=== PATIENT | female | born 1980 | race Caucasian/White ===

== ENCOUNTER 2017-04-06 08:34 | Emergency (ER) | payer OTHER ==
[2017-04-06 08:39] VITALS: BP 113/55; BMI 34.7
--- NOTE | 2017-04-06 09:12 | DR.CP ---
HPI - Time Seen Time seen: 09:10 - PCP Primary Care Physician: SARAH SOLANO - HPI Comment HPI Comment: PATIENT HAVE SIRENESS IN LEFT CHEST RADIATING TI LEFT SHOULDER AND ARM TIMES ONE DAY. WORSE TODAY. MOTRIN HELP PAIN YESTERDAY WHEN PATIENT TOOK ADVIL. DENIES FEVER. HAVE PRODUCTIVE COUGH, YELLOW SPUTUM. - Complaint Chief Complaint Doctor Comments: CHEST PAIN TIMES ONE DAY. Chief Complaint:: PT. C/O MID STERNAL AND LEFT SIDED CHEST PAIN THAT IS SHARP AND SORE IN NATURE. PT. C/O LEFT ARM TINGLING. PT. SAYS THE PAIN BEGAN YESTERDAY AT WORK AND SHE TOOK MOTRIN AND SYMPTOMS GOT BETTER BUT THEN BEGAN AGAIN THIS MORNING. - Reviewed Nurses Notes Review: Yes - Source History Provided: Patient - Mode of Arrival Mode of Arrival: Ambulatory - Timing Onset of Chief Complaint: 04/05/17 Came on: Suddenly Pain: Present Now - Duration Duration: Constant Duration: Days - Location Location of Chest Pain: Left Chest Pain Radiation Location: Left Arm, Left Shoulder - Context Onset: At rest PE Risk Factors: None History of: None Prehospital Care: None - Quality Quality: Sharp - Modifying Factors Worsens: Movement Impoves: Nothing - Associated Signs and Symptoms Associated Signs and Symptoms: Shortness of Breath PMH - PMH Past Medical History: Yes Past Medical History: Arthritis, COPD Past Surgical History: Yes Surgical History: , Cholecystectomy, Tonsillectomy - Family History History of Family Medical Conditions: Yes Family Medical History: Diabetes Mellitus, Cancer, [place], Coronary Artery Disease, Hypertension - Social History Does patient currently use any type of tobacco product: Yes Have you used tobacco products in the last 12 months: Yes Type of Tobacco Use: Cigarettes Does any household member use tobacco: No Alcohol Use: None Do you use any recreational Drugs:: No Lives With: Family Lives Where: Home - infectious screening In the last 2 months have you had wt loss of >10#?: NO Have you had fever, night sweats or hemotysis?: No Have you traveled outside the country in the last 6 months?: No Isolation: Standard ROS - Review of Systems Constitutional: Weakness, Fatigue. negative: Chills, Fever Eyes: No Symptoms Reported. negative: Eye Pain, Discharge ENTM: No Symptoms Reported. negative: Ear Pain, Nose Discharge, Nose Congestion Respiratoy: Productive Cough, Short of Breath. negative: Wheezing, Hemoptysis Cardiovascular: Chest Pain Gastrointestinal/Abdominal: No Symptoms Reported. negative: Abdominal Pain, Diarrhea, Nausea, Vomiting Genitourinary: No Symptoms Reported. negative: Dysuria, Frequency, Hematuria Neurological: Weakness, Dizziness. negative: Headache Musculoskeletal: Muscle Pain Integumentary: No Symptoms Reported Hematologic/Lymphatic: No Symptoms Reported Endocrine: No Symptoms Reported All Other Systems: Reviewed and Negative PE - Vitals Vitals: Temperature 97.7 F Pulse Rate 78 Respiratory Rate 17 Blood Pressure 113/55 O2 Sat by Pulse Oximetry 100 - General Limitations: No Limitations General Appearance: Alert - Head Head Exam: Normal Inspection - Eyes Eye exam: Normal Appearance - ENT ENT Exam: Normal External Ear Exam - Chest Chest Inspection: Symmetric Chest Wall Rise - Respiratory Respiratory Exam: Normal Lung Sounds Bilat Respiratory Exam: Bilateral Clear to Auscultation - Cardiovascular Cardiovascular Exam: Regular Rate, Normal Rhythm, Normal Heart Sounds Pulse: Normal, Radial, Femoral Edema: Normal - Abdominal Exam Abdominal Exam: Normal Bowel Sounds, Soft. negative: Distention - Extremities Extremities Exam: Normal Inspection - Back Back Exam: Normal Inspection - Neurologic Neurological Exam: Alert, Oriented X3 - Skin Skin Exam: Normal Color MDM - Additional Information Additional Information Obtained From: Family - Differential Diagnosis Differential Diagnosis: Angina, Chest Wall Pain, Cholelithasis, CHF, Costochondritis, Esophageal Reflux/Spasm, Gastritis, Myocardial Infarction, Pericarditis, Pleuritis, Pancreatitis, Pneumonia, Pneumothorax, Pulmonary Embolus Course - Treatment Treatment: SEE ORDERS - Education/Counseling Education/Counseling: Patient, Family, Education Educated On: Diagnosis, Needs for Follow Up ROR - Labs Reviewed Laboratory Results Reviewed?: Yes Result Diagrams: 04/06/17 09:27 04/06/17 09:27 Laboratory: WBC 6.0 X10^3/uL (3.6-10.0) 04/06/17 09: RBC 4.27 X10^6/uL (3.5-5.4) 04/06/17 09:27 Hgb 13.4 g/dL (12.0-16.0) 04/06/17 09:27 Hct 39.5 % (36.0-47.0) 04/06/17 09: MCV 92.4 fL (80.0-100.0) 04/06/17 09: MCH 31.4 pg (27.0-34.0) 04/06/17 09: MCHC 34.0 g/dL (33.0-35.0) 04/06/17 09: RDW 14.0 % (11.6-16.5) 04/06/17 09: Plt Count 249 X10^3/uL (150.0-450.0) 04/06/17: MPV 8.4 fL (7.4-11.0) 04/06/17: Neut % 60.5 % (42.0-75.0) 04/06/17: Lymph % 32.2 % (21.0-51.0) 04/06/17: [place] % 5.3 % (0.0-13.0) 04/06/17: Eos % 1.5 % (0.9-2.9) 04/06/17: Baso % 0.5 % (0.2-1.0) 04/06/17: Neut # 3.6 x10^3/uL (2.2-4.8) 04/06/17 09: Lymph # 1.9 X10^3/uL (1.3-2.9) 04/06/17 09: [place] # 0.3 x10^3/uL (0.3-0.8) 04/06/17 09: Eos # 0.1 x10^3/uL (0.0-0.2) 04/06/17: Baso # 0.0 X10^3/uL (0.0-0.1) 04/06/17 09: Absolute Nucleated RBC 0.0 /100WBC 04/06/17: D-Dimer < 100 ng/mL (0-400) 04/06/17 09: Sodium 140 mmol/L (136-145) 04/06/17: Corrected Sodium TNP 04/06/17: Potassium 4.6 mmol/L (3.5-5.1) 04/06/17 09: Chloride 105 mmol/L (98-107) 04/06/17: Carbon Dioxide 28.3 mmol/L (21-32) 04/06/17 09:27 BUN 3 mg/dL (7-18) L 04/06/17 09:27 Creatinine 0.80 mg/dL (0.55-1.02) 04/06/17 09:27 Est GFR (MDRD) Af Amer > 60 (>60) 04/06/17 09:27 Est GFR (MDRD) Non-Af > 60 (>60) 04/06/17 09:27 Glucose 83 mg/dL (65-99) 04/06/17 09:27 Calcium 8.7 mg/dL (8.5-10.1) 04/06/17 09:27 Corrected Calcium 9.3 mg/dL (8.5-10.1) 04/06/17 09:27 Total Bilirubin 0.40 mg/dL (0.2-1.0) 04/06/17 09:27 AST 12 Units/L (15-37) L 04/06/17 09:27 ALT 17 Units/L (12-78) 04/06/17 09:27 Alkaline Phosphatase 44 Units/L (46-116) L 04/06/17 09:27 Creatine Kinase 68 Units/L (26-192) 04/06/17 09:27 CK-MB (CK-2) 1.1 ng/mL (0-4.0) 04/06/17 09:27 CK/CKMB % Calc 1.6 % (<4) 04/06/17 09:27 Troponin I < 0.02 ng/mL (0-1.5) 04/06/17 09:27 Total Protein 6.5 g/dL (6.4-8.2) 04/06/17 09:27 Albumin 3.3 g/dL (3.4-5.0) L 04/06/17 09:27 Globulin 3.2 g/dL (2.5-4.5) 04/06/17 09:27 Albumin/Globulin Ratio 1.0 Ratio (1.1-2.1) L 04/06/17 09:27 Amylase 28 Units/L (25-115) 04/06/17 09:27 Lipase 55 Units/L (73-393) L 04/06/17 09:27 Specimen Type Clean catch urine 04/06/17 09:40 Urine Color Yellow (YELLOW) 04/06/17 09:40 Urine Appearance Clear (CLEAR) 04/06/17 09:40 Urine pH 6.0 (5.0 - 8.0) 04/06/17 09:40 Ur Specific Leopold 1.020 (1.000-1.030) 04/06/17 09:40 Urine Protein Negative (NEGATIVE) 04/06/17 09:40 Urine Glucose (UA) Negative (NEGATIVE) 04/06/17 09:40 Urine Ketones Negative (NEGATIVE) 04/06/17 09:40 Urine Occult Blood 1+ (NEGATIVE) 04/06/17 09:40 Urine Nitrite Negative (NEGATIVE) 04/06/17 09:40 Urine Bilirubin Negative (NEGATIVE) 04/06/17 09:40 Urine Urobilinogen Normal (NORMAL) 04/06/17 09:40 Ur Leukocyte Esterase Negative (NEGATIVE) 04/06/17 09:40 Urine RBC Rare /HPF (NEGATIVE) 04/06/17 09:40 Urine WBC None seen /HPF (NEGATIVE) 04/06/17 09:40 Ur Squamous Epith Cells Moderate /HPF (NEGATIVE) 04/06/17 09:40 Urine Bacteria Trace /HPF (NEGATIVE) 04/06/17 09:40 Ur Culture Indicated? No/not indicated 04/06/17 09:40 - XRAY XRAY Interpreted by: Radiologist XRAY Findings: REPORT DICUSS WITH PATIENT. - EKG Rhythm: SB (EKG NOTED) - Diagnosis Discharge Problem: Costochondritis Chest pain Qualifiers: Chest pain type: unspecified Qualified Code(s): R07.9 - Chest pain, unspecified - Discharge Plan Condition: Stable Prescriptions: Ibuprofen [MOTRIN TAB 600 MG *] 600 mg PO TID PRN #20 tab PRN Reason: Pain/Inflammation Ranitidine HCl [ZANTAC TAB 150 MG *] 150 mg PO BID #60 tab - Follow ups/Referrals Follow ups/Referrals: ASHOK ZHANG [Primary Care Provider] - 2 days - Instructions Instructions: Chest Pain Observation, Costochondritis, [id number] Additional Instructions: RETURN TO ED IF WORSE.
[2017-04-06 09:46] LABS: BASOPHILS % (AUTO) 0.5 % (0.2-1.0); EOSINOPHILS # (AUTO) 0.1 x10^3/uL (0.0-0.2); EOSINOPHILS % (AUTO) 1.5 % (0.9-2.9); HEMATOCRIT 39.5 % (36.0-47.0); HEMOGLOBIN 13.4 g/dL (12.0-16.0); LYMPHOCYTES # (AUTO) 1.9 X10^3/uL (1.3-2.9); LYMPHOCYTES % (AUTO) 32.2 % (21.0-51.0); MEAN CORPUSCULAR HEMOGLOBIN 31.4 pg (27.0-34.0); MEAN CORPUSCULAR VOLUME 92.4 fL (80.0-100.0); MEAN PLATELET VOLUME 8.4 fL (7.4-11.0); MONOCYTES # (AUTO) 0.3 x10^3/uL (0.3-0.8); MONOCYTES % (AUTO) 5.3 % (0.0-13.0); NEUTROPHILS # (AUTO) 3.6 x10^3/uL (2.2-4.8); NEUTROPHILS % (AUTO) 60.5 % (42.0-75.0); PLATELET COUNT 249 X10^3/uL (150.0-450.0); RED BLOOD COUNT 4.27 X10^6/uL (3.5-5.4)
[2017-04-06] MEDS ORDERED: TORADOL 60 MG VIAL IM ONE (09:51)
[2017-04-06] MEDS ORDERED: ASPIRIN PO ONE (09:52)
[2017-04-06] MEDS ORDERED: PEPCID TAB 20 MG PO ONE (09:53)
[2017-04-06 09:58] LABS: BILIRUBIN,URINE NEGATIVE (NEGATIVE); BLOOD/HEMOGLOBIN,URINE 1+ (NEGATIVE); GLUCOSE, URINE NEGATIVE (NEGATIVE); KETONES,URINE NEGATIVE (NEGATIVE); LEUKOCYTE ESTERASE ,URINE NEGATIVE (NEGATIVE); NITRITES,URINE NEGATIVE (NEGATIVE); PROTEIN,URINE NEGATIVE (NEGATIVE); UROBILINOGEN,URINE NORMAL (NORMAL)
[2017-04-06 10:03] LABS: BLOOD UREA NITROGEN 3 mg/dL (7-18); CALCIUM 8.7 mg/dL (8.5-10.1); CARBON DIOXIDE 28.3 mmol/L (21-32); CHLORIDE 105 mmol/L (98-107); GLUCOSE 83 mg/dL (65-99); SODIUM 140 mmol/L (136-145); TROPONIN I < 0.02 ng/mL (0-1.5); eGFR BLACK RACES > 60 (>60); eGFR NON BLACK RACES > 60 (>60)
[2017-04-06 10:05] LABS: ALANINE AMINOTRANSFERASE 17 Units/L (12-78); ALBUMIN 3.3 g/dL (3.4-5.0); ALKALINE PHOSPHATASE 44 Units/L (46-116); ASPARTATE AMINO TRANSFERASE 12 Units/L (15-37); CKMB % 1.6 % (<4); COR CA(FOR HYPOALB) 9.3 mg/dL (8.5-10.1); CREATINE KINASE 68 Units/L (26-192); CREATINE KINASE MB 1.1 ng/mL (0-4.0); TOTAL PROTEIN 6.5 g/dL (6.4-8.2)
[2017-04-06 10:14] LABS: AMYLASE 28 Units/L (25-115); LIPASE 55 Units/L (73-393)
[2017-04-06] MEDS ORDERED: ASPIRIN ONE (10:14)
[2017-04-06] MEDS ORDERED: PEPCID TAB 20 MG ONE (10:14)
[2017-04-06] MEDS ORDERED: TORADOL 60 MG VIAL ONE (10:14)
[2017-04-06 10:16] LABS: APPEARANCE,URINE CLEAR (CLEAR); BACTERIA,URINE TRACE /HPF (NEGATIVE); COLOR,URINE YELLOW (YELLOW); RBC,URINE RARE /HPF (NEGATIVE); SQUAMOUS EPITHELIAL CELL,UR MODERATE /HPF (NEGATIVE)
[2017-04-06 10:33] LABS: D DIMER < 100 ng/mL (0-400)
--- NOTE | 2017-04-06 10:33 | RAD ---
HISTORY: Chest pain. Study: Portable chest. Comparison: Findings: The trachea is midline. The cardiac silhouette is unremarkable. Bibasilar atelectasis versus scarri ng. No obvious focal consolidation, pleural effusion, or pneumothorax. The bony thorax is unremarka ble. IMPRESSION: 1. No acute cardiopulmonary disease. Reported By:
== END 2017-04-06 10:58 | disposition home or self-care (01) ==
LOC: ER 08:42
DX: M94.0 Chondrocostal junction syndrome [Tietze] (principal); R07.89 Other chest pain
CPT/HCPCS: 36415; 71010; 80053; 81001; 82150; 82550; 82553; 83690; 84484; 85025; 85378; 93005; 93010; 96372; 99283; J1885

== ENCOUNTER → 2017-06-29 | Outpatient (CLI) | payer OTHER ==
[~2017-06-29] MED LIST: NS 100 ML IV 100 ML IV ONE
--- NOTE | 2017-06-29 10:07 | CT ---
CT OF THE ABDOMEN AND PELVIS WITH CONTRAST HISTORY: Unspecified abdominal pain Comparison: None Technique: Multiple axial images of the abdomen and pelvis were obtained from the lung bases to the pubic symphy sis follow the administration of IV contrast. Dose reduction techniques including Automated Exposure Control (AEC) and adjustment of mA and kV were utlized. Findings: The heart is normal in size. There is no pericardial effusion. Lung bases are clear without focal con solidation, pleural effusion or pneumothorax. Liver and spleen are normal in size, enhancement characteristics and contour. No focal lesions. The p ortal vein is patent. No ductal dilitation. Gallbladder absent. The pancreas is unremarkable. Adrenal glands are normal. Kidneys enhance symmetrically without hydronephrosis or nephrolithiasis. No bowel obstruction or inflammation. Normal appendix. Fat containing umbilical hernia. No abnormal a ppearing mesenteric or retroperitoneal lymph nodes. No free fluid or fluid collections. The bladder is normal in appearance. Uterus and ovaries present. No free fluid or abnormal pelvic lym ph nodes. No aggressive osseous lesions. IMPRESSION: 1. No source of patient's unspecified abdominal pain is identified. Reported By:
== END ==
LOC: RAD 07:58
PROVIDERS: ATTEND Nurse Practitioner Family
DX: R10.84 Generalized abdominal pain (principal); R94.7 Abnormal results of other endocrine function studies; R53.83 Other fatigue
CPT/HCPCS: 74177; A4222

== ENCOUNTER 2017-09-27 20:20 | Emergency (ER) | payer OTHER ==
[2017-09-27 20:26] VITALS: BP 117/64; BMI 34.7
--- NOTE | 2017-09-27 20:48 | DR.GENAD ---
HPI - PCP Primary Care Physician: echo - Complaint/Symptoms Chief Complaint Doctors Comments: A 37 y/o female presenting with 2 weeks of cough, cold, nasal congestion, nausea with vomitting and diarrhea. She has also had fever. She states she's been using motrin and NyQuil. Chief Complaint:: pt stated for 2 weeks she has been having cough,fever,lower back pain,throwing up,diarrhea and abd pain - Source History Provided: Patient - Mode of Arrival Mode of Arrival: Ambulatory - Timing Onset of Chief Complaint: 09/13/17 - Modifying Factors Worsens:: nothing Improves:: nothing PMH - PMH Past Medical History: Yes Past Medical History: Arthritis, COPD Past Surgical History: Yes Surgical History: , Cholecystectomy, Tonsillectomy - Family History History of Family Medical Conditions: Yes Family Medical History: Diabetes Mellitus, Cancer, [place], Coronary Artery Disease, Hypertension - Social History Does patient currently use any type of tobacco product: Yes Have you used tobacco products in the last 12 months: Yes Type of Tobacco Use: Cigarettes How many years tobacco product used: 18 Does any household member use tobacco: No Alcohol Use: None Do you use any recreational Drugs:: No Lives With: Family Lives Where: Home - infectious screening In the last 2 months have you had wt loss of >10#?: NO Have you had fever, night sweats or hemotysis?: No Have you traveled outside the country in the last 6 months?: No Isolation: Standard ROS - Review of Systems Constitutional: Fever Eyes: No Symptoms Reported ENTM: No Symptoms Reported Respiratoy: Dry Cough Cardiovascular: No Symptoms Reported Gastrointestinal/Abdominal: See HPI, Diarrhea, Nausea, Vomiting. negative: Abdominal Pain, Constipation, Food Intolerance Genitourinary: No Symptoms Reported Neurological: No Symptoms Reported Musculoskeletal: Back Pain Integumentary: No Symptoms Reported Hematologic/Lymphatic: No Symptoms Reported Endocrine: No Symptoms Reported Psychiatric: No Symptoms Reported All Other Systems: Reviewed and Negative PE - Vital Signs Vitals: Temperature 97.7 F Pulse Rate 86 Respiratory Rate 16 Blood Pressure 117/64 O2 Sat by Pulse Oximetry 98 - General Limitations: No Limitations General Appearance: Alert, In No Apparent Distress - Head Head Exam: Normal Inspection - Eyes Eye exam: Normal Appearance, PERRL, EOMI - ENT ENT Exam: Normal Exam - Neck Neck Exam: Normal Inspection, Full ROM - Chest Chest Inspection: Normal Inspection - Respiratory Respiratory Exam: Normal Lung Sounds Bilat - Cardiovascular Cardiovascular Exam: Regular Rate, Normal Rhythm - Abdominal Exam Abdominal Exam: Normal Inspection, Normal Bowel Sounds, Soft - Extremities Extremities Exam: Normal Inspection, Full ROM - Back Back Exam: Normal Inspection - Neurologic Neurological Exam: Alert, Oriented X3 - Psychiatric Psychiatric Exam: Normal Affect, Normal Mood - Skin Skin Exam: Warm, Dry, Intact, Normal Color Course - Reevaluation 1st: Improved - Education/Counseling Education/Counseling: Patient, Family, Counseling Educated On: Treatment, Diagnosis, Prognosis, Needs for Follow Up ROR - Labs Reviewed Result Diagrams: 09/27/17 21:00 09/27/17 21:00 Laboratory: WBC 7.2 X10^3/uL (3.6-10.0) 09/27/17 21:00 RBC 4.29 X10^6/uL (3.5-5.4) 09/27/17 21:00 Hgb 13.6 g/dL (12.0-16.0) 09/27/17 21:00 Hct 39.3 % (36.0-47.0) 09/27/17 21:00 MCV 91.5 fL (80.0-100.0) 09/27/17 21:00 MCH 31.8 pg (27.0-34.0) 09/27/17 21:00 MCHC 34.7 g/dL (33.0-35.0) 09/27/17 21:00 RDW 13.8 % (11.6-16.5) 09/27/17 21:00 Plt Count 267 X10^3/uL (150.0-450.0) 09/27/17 21:00 MPV 8.2 fL (7.4-11.0) 09/27/17 21:00 Neut % 53.4 % (42.0-75.0) 09/27/17 21:00 Lymph % 38.4 % (21.0-51.0) 09/27/17 21:00 [place] % 5.8 % (0.0-13.0) 09/27/17 21:00 Eos % 2.0 % (0.9-2.9) 09/27/17 21:00 Baso % 0.4 % (0.2-1.0) 09/27/17 21:00 Neut # 3.8 x10^3/uL (2.2-4.8) 09/27/17 21:00 Lymph # 2.8 X10^3/uL (1.3-2.9) 09/27/17 21:00 [place] # 0.4 x10^3/uL (0.3-0.8) 09/27/17 21:00 Eos # 0.1 x10^3/uL (0.0-0.2) 09/27/17 21:00 Baso # 0.0 X10^3/uL (0.0-0.1) 09/27/17 21:00 Absolute Nucleated RBC 0.1 /100WBC 09/27/17 21:00 Sodium 140 mmol/L (136-145) 09/27/17 21:00 Corrected Sodium TNP 09/27/17 21:00 Potassium 3.6 mmol/L (3.5-5.1) 09/27/17 21:00 Chloride 104 mmol/L (98-107) 09/27/17 21:00 Carbon Dioxide 30.7 mmol/L (21-32) 09/27/17 21:00 BUN 5 mg/dL (7-18) L 09/27/17 21:00 Creatinine 0.89 mg/dL (0.55-1.02) 09/27/17 21:00 Est GFR (MDRD) Af Amer > 60 (>60) 09/27/17 21:00 Est GFR (MDRD) Non-Af > 60 (>60) 09/27/17 21:00 Glucose 90 mg/dL (65-99) 09/27/17 21:00 Calcium 9.0 mg/dL (8.5-10.1) 09/27/17 21:00 Corrected Calcium TNP 09/27/17 21:00 Total Bilirubin 0.30 mg/dL (0.2-1.0) 09/27/17 21:00 AST 12 Units/L (15-37) L 09/27/17 21:00 ALT 19 Units/L (12-78) 09/27/17 21:00 Alkaline Phosphatase 57 Units/L (46-116) 09/27/17 21:00 Total Protein 6.8 g/dL (6.4-8.2) 09/27/17 21:00 Albumin 3.6 g/dL (3.4-5.0) 09/27/17 21:00 Globulin 3.2 g/dL (2.5-4.5) 09/27/17 21:00 Albumin/Globulin Ratio 1.1 Ratio (1.1-2.1) 09/27/17 21:00 Influenza Type A (PCR) Negative (NEGATIVE) 09/27/17 21:01 Influenza Type B (PCR) Negative (NEGATIVE) 09/27/17 21:01 - XRAY XRAY Interpreted by: Radiologist (AAS read as: Chest- NAD; Abdomen- mild constipation ) - Diagnosis Discharge Problem: Gastroenteritis, Upper respiratory infection - Discharge Plan Disposition: HOME, SELF-CARE Condition: Stable - Follow ups/Referrals Follow ups/Referrals: ASHOK ZHANG [Primary Care Provider] - 3 days - Instructions
[2017-09-27] MEDS ORDERED: NS 1000 ML 1,000 ML IV ONE (20:49)
[2017-09-27] MEDS ORDERED: NS 1000 ML 1,000 ML ONE (20:56)
[2017-09-27 21:12] LABS: BASOPHILS % (AUTO) 0.4 % (0.2-1.0); EOSINOPHILS # (AUTO) 0.1 x10^3/uL (0.0-0.2); HEMATOCRIT 39.3 % (36.0-47.0); HEMOGLOBIN 13.6 g/dL (12.0-16.0); LYMPHOCYTES # (AUTO) 2.8 X10^3/uL (1.3-2.9); LYMPHOCYTES % (AUTO) 38.4 % (21.0-51.0); MEAN CORPUSCULAR HEMOGLOBIN 31.8 pg (27.0-34.0); MEAN CORPUSCULAR HGB CONC 34.7 g/dL (33.0-35.0); MEAN CORPUSCULAR VOLUME 91.5 fL (80.0-100.0); MEAN PLATELET VOLUME 8.2 fL (7.4-11.0); MONOCYTES # (AUTO) 0.4 x10^3/uL (0.3-0.8); MONOCYTES % (AUTO) 5.8 % (0.0-13.0); NEUTROPHILS # (AUTO) 3.8 x10^3/uL (2.2-4.8); NEUTROPHILS % (AUTO) 53.4 % (42.0-75.0); PLATELET COUNT 267 X10^3/uL (150.0-450.0); RED BLOOD COUNT 4.29 X10^6/uL (3.5-5.4); RED CELL DISTRIBUTION WIDTH 13.8 % (11.6-16.5); WHITE BLOOD COUNT 7.2 X10^3/uL (3.6-10.0)
[2017-09-27 21:22] LABS: ALANINE AMINOTRANSFERASE 19 Units/L (12-78); ALBUMIN 3.6 g/dL (3.4-5.0); ALKALINE PHOSPHATASE 57 Units/L (46-116); ASPARTATE AMINO TRANSFERASE 12 Units/L (15-37); BLOOD UREA NITROGEN 5 mg/dL (7-18); CARBON DIOXIDE 30.7 mmol/L (21-32); CHLORIDE 104 mmol/L (98-107); CREATININE 0.89 mg/dL (0.55-1.02); SODIUM 140 mmol/L (136-145); TOTAL PROTEIN 6.8 g/dL (6.4-8.2); eGFR BLACK RACES > 60 (>60); eGFR NON BLACK RACES > 60 (>60)
--- NOTE | 2017-09-27 21:25 | RAD ---
Acute abdominal series Indication: Abdominal pain for 2 weeks with cough and fever Comparison: None available Findings: The trachea is midline. The cardiac silhouette is unremarkable. The lungs are clear without focal i nfiltrate or effusion. The bony thorax is unremarkable. Flat and upright evaluation of the abdomen demonstrates a mild increased amount of fecal material con sistent with mild constipation. Small bowel gas pattern is nonspecific. No definite obstructive bowel gas pattern identified within the small bowel or colon. No free air or pneumatosis. No pathological soft tissue mass or calcification can be observed. The bony structures are grossly intact. Prior ch olecystectomy is noted. IMPRESSION: 1. No acute cardiopulmonary disease. 2. Mild constipation. Reported By:
[2017-09-27] MEDS ORDERED: PHENERGAN INJ 25 MG IV ONE (22:03)
[2017-09-27] MEDS ORDERED: PHENERGAN INJ 25 MG ONE (22:15)
== END 2017-09-27 22:28 | disposition home or self-care (01) ==
LOC: ER 20:30
DX: K52.89 Other specified noninfective gastroenteritis and colitis (principal); J06.9 Acute upper respiratory infection, unspecified; K59.09 Other constipation
CPT/HCPCS: 36415; 74022; 80053; 85025; 87502; 96365; 96374; 99283; A4222; J2550

== ENCOUNTER → 2018-01-05 | Outpatient (CLI) | payer OTHER ==
[2018-01-05 11:07] LABS: BASOPHILS % (AUTO) 0.7 % (0.2-1.0); EOSINOPHILS # (AUTO) 0.1 x10^3/uL (0.0-0.2); EOSINOPHILS % (AUTO) 2.1 % (0.9-2.9); HEMATOCRIT 41.6 % (36.0-47.0); HEMOGLOBIN 14.4 g/dL (12.0-16.0); LYMPHOCYTES # (AUTO) 2.3 X10^3/uL (1.3-2.9); MEAN CORPUSCULAR HEMOGLOBIN 32.1 pg (27.0-34.0); MEAN CORPUSCULAR HGB CONC 34.6 g/dL (33.0-35.0); MEAN CORPUSCULAR VOLUME 92.8 fL (80.0-100.0); MONOCYTES # (AUTO) 0.3 x10^3/uL (0.3-0.8); MONOCYTES % (AUTO) 5.2 % (0.0-13.0); NEUTROPHILS # (AUTO) 3.7 x10^3/uL (2.2-4.8); PLATELET COUNT 272 X10^3/uL (150.0-450.0); RED BLOOD COUNT 4.48 X10^6/uL (3.5-5.4); RED CELL DISTRIBUTION WIDTH 14.1 % (11.6-16.5); WHITE BLOOD COUNT 6.5 X10^3/uL (3.6-10.0)
[2018-01-05 11:27] LABS: ALANINE AMINOTRANSFERASE 17 Units/L (12-78); ALBUMIN 3.6 g/dL (3.4-5.0); ALKALINE PHOSPHATASE 57 Units/L (46-116); ASPARTATE AMINO TRANSFERASE 9 Units/L (15-37); BLOOD UREA NITROGEN 5 mg/dL (7-18); CALCIUM 8.5 mg/dL (8.5-10.1); CARBON DIOXIDE 28.9 mmol/L (21-32); CHLORIDE 103 mmol/L (98-107); CREATININE 0.79 mg/dL (0.55-1.02); FREE T4 (FREE THYROXINE) 1.02 ng/dL (0.76-1.46); SODIUM 138 mmol/L (136-145); TOTAL PROTEIN 7.1 g/dL (6.4-8.2); TSH (3RD GENERATION) 1.438 uIU/mL (0.358-3.74); eGFR BLACK RACES > 60 (>60); eGFR NON BLACK RACES > 60 (>60)
== END ==
LOC: LAB 10:38
PROVIDERS: ATTEND Nurse Practitioner Family
DX: Z79.899 Other long term (current) drug therapy (principal); N60.19 Diffuse cystic mastopathy of unspecified breast
CPT/HCPCS: 36415; 80053; 84439; 84443; 85025